=== PATIENT | female | born 1985 | race Two or more races ===

== ENCOUNTER 2018-08-06 10:12 | Observation (INO) | payer OTHER ==
--- NOTE | 2018-08-06 11:19 | EDPHY ---
H & P Stated Complaint: abd pain/20 weeks - Personal History LMP (Females 10-55): - Medical/Surgical History Hx Asthma: No Hx Chronic Respiratory Disease: No Hx Diabetes: No Hx Cardiac Disease: No Hx Renal Disease: No Hx Cirrhosis: No Hx Alcoholism: No Hx HIV/AIDS: No Hx Splenectomy or Spleen Trauma: No Other PMH: denies - Social History Smoking Status: Never smoked Time Seen by Provider: 08/06/18 10:46 HPI/ROS: CHIEF COMPLAINT: Abdominal pain, HISTORY OF PRESENT ILLNESS: 33-year-old female currently 20 weeks followed at [facility] maternity care complaining of 3 days of lower abdominal pain. She was seen by her OBGYN 2 days ago as well as yesterday and reassured that everything was okay however the pain has been keeping her up. Positive mild nausea.No vaginal bleeding or discharge. No back or flank pain. No fever or chills. No dysuria hematuria or increased frequency. Normal bowel movements. The patient has had confirmed ultrasound IUP PRIMARY CARE PROVIDER: [facility] maternity REVIEW OF SYSTEMS: 10 systems reviewed and negative with the exception of the elements mentioned in the history of present illness PAST MEDICAL & SURGICAL HISTORY: currently approximately 20 weeks SOCIAL HISTORY: Nonsmoker PHYSICAL EXAM (Prior to examination, patient consented to physical exam, hands were washed and my usual and customary physical exam procedures followed) 1) GENERAL: Well-developed, well-nourished, alert and oriented. Appears is uncomfortable. 2) HEAD: Normocephalic, atraumatic 3) HEENT: Pupils equal, round, reactive to light bilaterally. Sclera anicteric. 4) NECK: Full range of motion, no meningeal signs. 5) LUNGS: Clear auscultation bilaterally, no wheezes, no rhonchi, no retractions. 6) HEART: Regular rate and rhythm, no murmur, no heave, no gallop. 7) ABDOMEN: Tender to palpation bilateral lower quadrants, right greater than left No suprapubic discomfort. No right upper quadrant pain., 8) MUSCULOSKELETAL: Moving all extremities, no focal areas of tenderness, no obvious trauma. No peripheral edema or discoloration. 9) BACK: No CVA tenderness, no midline vertebral tenderness, no fluctuance, no step-off, no obvious trauma, no visual or palpable abnormality. 10) SKIN: No rash, no petechiae. 11) Psychiatric: Patient is oriented X 3, there is no agitation. DIFFERENTIAL DIAGNOSIS: My differential diagnosis includes, but is not limited to, acute appendicitis, acute cholecystitis, bowel obstruction, acute pancreatitis, ovarian torsion,, gastritis and urinary tract infection. The patient understands that this diagnosis is provisional and can never be 100% accurate. This is a partial list of diagnoses considered. These considerations are based on history, physical exam, past history and reassessment. (Mel Salcido) Constitutional: Initial Vital Signs Temperature (C) 36.5 C 08/06/18 10:17 Heart Rate 100 08/06/18 10:17 Respiratory Rate 18 08/06/18 10:17 Blood Pressure 97/65 L 08/06/18 10:17 O2 Sat (%) 99 08/06/18 10:17 O2 Delivery Mode Nasal Cannula O2 (L/minute) 2 Allergies/Adverse Reactions: No Known Allergies Allergy (Verified 08/06/18 16:42) Home Medications: Medication Instructions Recorded celeCOXIB [Celebrex (*)] 200 mg PO BID #4 cap 08/07/18 Medical Decision Making - Diagnostics Imaging Results: Images reviewed myself (Mel Salcido) ED Course/Re-evaluation: The patient was evaluated and managed by the physician's child life assistant. My cosignature indicates that I reviewed the chart and I agree with the findings and plan of care as documented. I am the secondary supervising physician. ( Tomasa Bullock) 11:00 a.m.: I have evaluated this patient, she appears uncomfortable. Will obtain diagnostic studies including obstetrical ultrasonography. 1:00 p.m.: Patient re-evaluated, she complains of continued pain to her abdomen. Discussed her obstetrical ultrasound. Of concern in this patient is possible appendicitis. Appendix not visualized on ultrasound Case discussed with secondary supervising physician Dr. Tomasa Bullock in the E R. Discussed possibility of magnetic resonance imaging Will consult with General surgery and with OBGYN prior to ordering MRI 1:07 p.m.: Consultation with Dr. Mike BLANCO who will come to the ER to evaluate patient will plan on General surgery consultation as well. 112 p.m.: Consultation with Dr Finley will come to ER to evaluate patient 138 pm: Drs Tushar & Mariela have consulted, recommend MRI abdomen. 4:15 p.m.: Patient's MRI is negative for acute appendicitis. Patient re- evaluated at this time, discussed her imaging results. She continues to complain of pain. 4:22 p.m.: Consultation with Dr. Mike Sierra who agrees to admit the patient for pain control, further evaluation to Labor and delivery. Patient has been unable to provide urine sample up to this point. Will be given further fluids. Early in the patient's emergency department course she was complaining of high level of abdominal pain. The patient, her and I had a lengthy discussion to discuss indications risks benefits of opiates. Given the degree of her pain I think that a single dose of opiate benefits outweigh the risks. Nonetheless she has been informed of potential risks and wishes to move forward with analgesia. I believe her to have decision-making capacity. (Mel Salcido) - Data Points Laboratory Results: Laboratory Results 08/06/18 11:05 08/06/18 11:05 Medications Given: Discontinued Medications Acetaminophen (Tylenol) 1,000 mg PO Q8HRS RICH Stop: 02/02/19 21:59 Last Admin: 08/07/18 07:58 Dose: Not Given Celecoxib (Celebrex) 200 mg PO BID RICH Stop: 02/03/19 08:59 Last Admin: 08/07/18 13:39 Dose: 200 mg Celecoxib (Celebrex) 400 mg PO ONCE ONE Stop: 08/06/18 18:16 Last Admin: 08/06/18 19:06 Dose: 400 mg Sodium Chloride (Ns) 1,000 mls @ 0 mls/hr IV ONCE ONE PRN Reason: Wide Open Stop: 08/06/18 16:26 Last Admin: 08/06/18 17:15 Dose: 1,000 mls Morphine Sulfate (Morphine) 4 mg IVP EDNOW ONE Stop: 08/06/18 13:10 Last Admin: 08/06/18 13:12 Dose: 4 mg Departure - Departure Disposition: [facility] Inpatient Acute Clinical Impression: Abdominal pain Qualifiers: Abdominal location: right lower quadrant Qualified Code(s): R10.31 - Right lower quadrant pain Condition: Fair
[2018-08-06 11:21] LABS: PLATELET COUNT 250 10^3/uL (150-400)
--- NOTE | 2018-08-06 14:44 | GCON ---
DATE OF CONSULTATION: 08/06/2018 CHIEF COMPLAINT: Abdominal pain. HISTORY OF PRESENT ILLNESS: This is a 33-year-old female, approximately 20 weeks , who presents to the emergency department with a 3-day history of abdominal pain. Briefly, the patient states that the pain started on Thursday, was originally in her right lower quadrant. She subsequently followed up with her OB and had an ultrasound, which was reassuring. She was subsequently sent home. She states that throughout , she had progressive abdominal pain now to the left portion of her abdomen. Over last night, the pain got worse, which prompted her presentation today. She describes the pain as intermittent, colicky type. It usually starts in the right lower quadrant but radiates now to the left lower and left upper quadrant at times. Nothing really makes it worse. Resting and fluids make it better. She denies having any nausea or vomiting associated with this, and she denies having any subjective chills or fever. She has never had pain like this before. This is her second , the first of which was uneventful. This is the first time during this that she has had issues. PAST MEDICAL HISTORY: None. PAST SURGICAL HISTORY: None. CURRENT MEDICATIONS: vitamins. ALLERGIES: None. FAMILY HISTORY: Noncontributory. SOCIAL HISTORY: Denies illicit drug use. 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 REVIEW OF SYSTEMS: A full 10-point review was performed. PHYSICAL EXAMINATION: VITAL SIGNS: Temperature 36.5, blood pressure 115/78, heart rate is 76, and she is 96% on room air. CONSTITUTIONAL: She is in no apparent distress. She does appear uncomfortable, however. HEENT: Eyes, her pupils are equal, round, and reactive to light and accommodation. She has anicteric sclerae. Extraocular movements are intact. Ears, nose, mouth, throat : She has dry mucous membranes. Her hearing is normal. Her ears appear normal. She has normal dentition. CARDIOVASCULAR: She has a regular rate and rhythm, without any murmurs, gallops, or rubs. RESPIRATORY: She has no respiratory distress, rales or rhonchi. She is otherwise clear to auscultation bilaterally. GI: Her abdomen is distended, consistent with a 20-week gestation. She has normoactive bowel sounds. She is minimally tender in all quadrants, without rebound tenderness or guarding. SKIN: Warm. Normal color. No rashes. MUSCULOSKELETAL: Full strength. Normal tenderness. Normal joint range of motion. NEUROLOGIC: She is alert and oriented x3. Her cranial nerves 2-12 are intact. No weakness. No numbness or asterixis. PSYCH: She is interacting appropriately. She is not anxious or encephalopathic. LYMPH/ HEME/IMMUNOLOGIC: No cervical, groin, or supraclavicular lymphadenopathy is appreciated. LABS: She does have a leukocytosis to 15,000 with a left shift at 84% neutrophils. Her H and H are stable at 12 and 37. Her platelets are normal at 250. Her chemistry is largely unremarkable. IMAGING: Includes an abdominal ultrasound and an abdominal MRI, the images of which were personally reviewed, which shows a nonvisualized appendix. The MR shows what appears to be a normal appendix and no other significant findings. ASSESSMENT AND PLAN: A 33-year-old female, approximately 20 weeks with abdominal pain, question appendicitis. The patient's story does not really reflect appendicitis. She has not had any fevers. In addition, no nausea or vomiting, but she does have persistent, somewhat progressive abdominal pain, worse in the right lower quadrant. I am concerned that she may have appendicitis and feel that further imaging at this point in time is warranted. I discussed this with Dr. Sierra of [facility], who agrees that further imaging is likely warranted. We will plan for MR of her abdomen. I told the patient that we will proceed with further imaging, and that if she does have findings consistent or worrisome for appendicitis, that my recommendation would be for appendectomy. I briefly discussed this with the patient and will follow up with her once the imaging is completed. Imaging complete: appendix visualized and not inflamed. Dont feel that operative intervention warranted in this patient, will defer management to OB /[id number]/MODL MTDD
[2018-08-06] MEDS ORDERED: NS 1,000 ML IV ONE (16:25)
--- NOTE | 2018-08-06 17:02 | PDGENHP ---
History and Physical - Chief Complaint Abdominal pain, 20 wks - History of Present Illness 33 yo at approximately 20 wks EGA today, presented to ER this afternoon with worsening rather diffuse abdominal pain. She describes this pain as occasionally sharp, but hard to pinpoint. Started approximately 3 days ago, initially RLQ. Since then she can feel the pain in other quadrants, more diffuse. She's had no bleeding during this time, has felt no contractions, and has been and still is feeling normal movement. When this started days ago she was seen by her primary OB providers at [facility] who reportedly looked with US and told her things looked reassuring. Pain continued to worsen yesterday and today and ultimately presented to the ED. Here she has a mildly elevated WBC of 15k, no fever. She was seen by Dr. Finley of General Surgery to eval for appendicitis and MRI was ordered after US couldn't visualize the appendix. MRI negative for appendicitis. She ultimately is in too much pain to be discharged home so we will be admitting her to L&D for observation and pain control. Her US today shows active, viable fetus - Biometry is indicative of an age of 18 weeks 3 days and an HU of 01/04/2019. She does have known large uterine fibroids and this today is demonstrated on US and MRI as an exophytic 6cm subserosal fibroid emanating from the fundus. We don't currently have her records from [facility], but she reports this has been an overall uncomplicated . History Information - Allergies/Home Medication List Allergies/Adverse Reactions: No Known Allergies Allergy (Verified 08/06/18 16:42) Home Medications: NK [No Known Home Meds] 08/06/18 [Last Taken Unknown] I have personally reviewed and updated: family history, medical history, social history, surgical history Past Medical History: H/o prior normal - Past Medical History no pertinent PMH - Surgical History Reports: no pertinent surgical hx - Family History Positive for: non-pertinent - Social History Smoking Status: Never smoked Alcohol Use: None Review of Systems Review of Systems: ROS: 10pt was reviewed & negative except for what was stated in HPI & below Physical Exam Physical Exam: Temp Pulse Resp BP Pulse Ox 36.5 C 91 18 105/71 100 08/06/18 10:17 08/06/18 15:29 08/06/18 15:29 08/06/18 15:29 08/06/18 15:29 Constitutional: appears nourished, uncomfortable (Appears uncomfortable, lying in position) Eyes: PERRL, scleral injection Ears, Nose, Mouth, Throat: moist mucous membranes Cardiovascular: regular rate and rhythym, no murmur, rub, or gallop Respiratory: no respiratory distress, clear to auscultation Gastrointestinal: tenderness (Belly is tender to light and deep palpation, specifically over fundus), guarding, other (Fundus at umbilicus), No ascites, No armstrong's sign, No rebound, No distension Genitourinary: no bladder fullness, no bladder tenderness Skin: warm, normal color, no rashes or abrasions Musculoskeletal: full muscle strength, no muscle tenderness Neurologic: AAOx3, sensation intact bilaterally, No weakness Psychiatric: interacting appropriately, not anxious Lab Data & Imaging Review 08/06/18 11:05 08/06/18 11:05 WBC 15.77 10^3/uL (3.80-9.50) H 08/06/18 11:05 RBC 4.12 10^6/uL (4.18-5.33) L 08/06/18 11:05 Hgb 12.6 g/dL (12.6-16.3) 08/06/18 11:05 Hct 37.1 % (38.0-47.0) L 08/06/18 11:05 MCV 90.0 fL (81.5-99.8) 08/06/18 11:05 MCH 30.6 pg (27.9-34.1) 08/06/18 11:05 MCHC 34.0 g/dL (32.4-36.7) 08/06/18 11:05 RDW 14.8 % (11.5-15.2) 08/06/18 11:05 Plt Count 250 10^3/uL (150-400) 08/06/18 11:05 MPV 10.1 fL (8.7-11.7) 08/06/18 11:05 Neut % (Auto) 84.3 % (39.3-74.2) H 08/06/18 11:05 Lymph % (Auto) 8.4 % (15.0-45.0) L 08/06/18 11:05 Garrett % (Auto) 6.3 % (4.5-13.0) 08/06/18 11:05 Eos % (Auto) 0.3 % (0.6-7.6) L 08/06/18 11:05 Baso % (Auto) 0.3 % (0.3-1.7) 08/06/18 11:05 Nucleat RBC Rel Count 0.0 % (0.0-0.2) 08/06/18 11:05 Absolute Neuts (auto) 13.30 10^3/uL (1.70-6.50) H 08/06/18 11:05 Absolute Lymphs (auto) 1.33 10^3/uL (1.00-3.00) 08/06/18 11:05 Absolute Monos (auto) 0.99 10^3/uL (0.30-0.80) H 08/06/18 11:05 Absolute Eos (auto) 0.04 10^3/uL (0.03-0.40) 08/06/18 11:05 Absolute Basos (auto) 0.05 10^3/uL (0.02-0.10) 08/06/18 11:05 Absolute Nucleated RBC 0.00 10^3/uL (0-0.01) 08/06/18 11:05 Immature Gran % 0.4 % (0.0-1.1) 08/06/18 11:05 Immature Gran # 0.06 10^3/uL (0.00-0.10) 08/06/18 11:05 Sodium 137 mEq/L (135-145) 08/06/18 11:05 Potassium 3.6 mEq/L (3.3-5.0) 08/06/18 11:05 Chloride 104 mEq/L (97-110) 08/06/18 11:05 Carbon Dioxide 23 mEq/l (22-31) 08/06/18 11:05 Anion Gap 10 mEq/L (8-16) 08/06/18 11:05 BUN 4 mg/dL (7-23) L 08/06/18 11:05 Creatinine 0.4 mg/dL (0.6-1.0) L 08/06/18 11:05 Estimated GFR > 60 08/06/18 11:05 Glucose 88 mg/dL (70-100) 08/06/18 11:05 Calcium 9.3 mg/dL (8.5-10.4) 08/06/18 11:05 Total Bilirubin 0.8 mg/dL (0.1-1.4) 08/06/18 11:05 Conjugated Bilirubin 0.0 mg/dL (0.0-0.5) 08/06/18 11:05 Unconjugated Bilirubin 0.8 mg/dL (0.0-1.1) 08/06/18 11:05 AST 25 IU/L (14-46) 08/06/18 11:05 ALT 36 IU/L (9-52) 08/06/18 11:05 Alkaline Phosphatase 82 IU/L (38-126) 08/06/18 11:05 Total Protein 7.2 g/dL (6.3-8.2) 08/06/18 11:05 Albumin 3.8 g/dL (3.5-5.0) 08/06/18 11:05 Lipase 40 IU/L (23-300) 08/06/18 11:05 Beta HCG, Quant 99207.00 mIU/mL (0.00-4.83) H 08/06/18 11:05 Imaging Review: Date of Service: 08/06/18 Acct Num: [id number] Ultrasound Obstetrics 2 TRI >14 WKS ___ Second Trimester Obstetrical Sonography Clinical History: 33-year-old female with advanced maternal age, presenting to the ED with a three-day history of abdominal pain. Technique: A curvilinear 5 MHz transducer was used to sonographically evaluate the fetus and the placenta. M-mode Doppler was used. LMP: Unknown. Comparison Study: Prior obstetrical sonography is not available. This is correlated with right lower quadrant abdominal sonography performed today. Findings: There is a single viable intrauterine gestation, currently cephalic in presentation. The placenta is posterior. The maternal cervix is lower limits of normal at 2.5 cm, measured transabdominally, and the the placental positioning relative to the cervix is not optimally evaluated. There is a fundal subserosal fibroid measuring 6.1 x 5.5 x 6.1 cm. The amniotic fluid volume is appropriate, with a maximal vertical pocket of 4.0 cm. The heart rate is 149 bpm. The maternal ovaries were not seen during the obstetrical portion of the exam ( although the maternal right ovary was seen during the evaluation of the right lower quadrant of the abdomen, reported earlier). The anatomy is cursorily evaluated, and there is a 4 chambered heart, stomach, right and left kidneys, and urinary bladder observed. The cisterna magna is 2.6 mm, and the lateral ventricular diameter is 5.3 mm. biometry is as follows: The biparietal diameter is 41 mm, corresponding to an age of 18 weeks 4 days +/ - 1 week 6 days. The head circumference is 149 mm, corresponding to an age of 18 weeks 1 day +/- 1 week 4 days. The abdominal circumference is 120 mm, corresponding to an age of 17 weeks 6 days +/- 1 week 5 days. The femur length is 28 mm, corresponding to an age of 18 weeks 5 days +/- 1 week 6 days. The humeral length is 26 mm, corresponding to an age of 18 weeks 1 day, and the transcerebellar diameter is 18 mm, corresponding to an age of 18 weeks 0 days +/- 1 week 0 days, for a composite gestational age of 18 weeks 3 days. The estimated weight is 226 g +/- 33 g, which is 8 ounces +/- 1 ounce. The head circumference to abdominal circumference ratio is 1.24. The femur length to biparietal diameter ratio is 68%, and the femur length to abdominal circumference ratio is 23%. Impression: There is a single viable intrauterine gestation with a limited anatomic survey and suboptimal assessment of placental positioning and a maternal cervix at the lower limits of normal. Biometry is indicative of an age of 18 weeks 3 days and an HU of 01/04/2019. Findings were discussed with Jhoana Salcido PA-C at 12:30 PM, on 08/06/2018. Because of the patient's advanced maternal age, cursory anatomic survey, and limited assessment of the maternal cervix and placental positioning, it may be worthwhile to consider a follow-up consultation with [facility] at the [facility]. Dictated By: Kb Hu MD *This report was compiled using a voice recognition dictation system and may contain typographical errors* 1233 T: PSCRIBE 08/06/18 1233 Electronically Signed by: Kb Hu MD 08/06/18 1248 CC: Mel Salcido PAC; NONE *PRIMARY CARE PHYS ONLY*; ASH FOSTER~ Assessment & Plan Assessment: 33 yo at approximately 20 wks EGA presents with acute diffuse/ multifocal abdominal pain. Leading differential includes labor, appendicitis, degenerating uterine fibroids. PTL unlikely - Reassuring OB US, no signs of distress or abruption sonographically and outwardly patient is not describing contractions and is having no bleeding, good movement. Appreciate Gen Surg eval re appendicitis - MRI not suggestive of that. I suspect degenerating fibroids is most likely etiology. - Will start 3 day course of Celebrex for inflammatory pain related to fibroid - 200mg BID x 3 days, will give 400mg now x 1 for day 1. - Unable to give urine sample downstairs - need to get this w/ culture PRN. - [place] PRN is fine if needed until pain better controlled. - General diet, daily doptones, up and ambulate, no IVF, no sinha. - Will get records when we can. - Likely home next 24-48 hrs when pain controlled. EMMA
[2018-08-06] MEDS ORDERED: HYDROCODONE/APAP 5/325 TAB PO PRN (17:31)
[2018-08-06] MEDS ORDERED: ZOLPIDEM TARTRATE 5 MG TAB PO PRN (17:32)
[2018-08-06 17:46] VITALS: BP 105/68
[2018-08-07] MEDS: ACETAMINOPHEN 500 MG TAB PO SCH ×2 (00:20→07:58)
[2018-08-07 06:06] LABS: PLATELET COUNT 213 10^3/uL (150-400)
--- NOTE | 2018-08-07 13:27 | SOAPPROG ---
[facility] Progress Note Assessment/Plan: Assessment: 33 yo @ 20 weeks pain secondary to degenerating fibroid - improved with celebrex follow up with clinica next week Plan: 08/07/18 13:25 Objective: Vital Signs Temp Pulse Resp BP Pulse Ox 36.8 C 98 18 105/68 100 08/06/18 17:44 08/06/18 17:44 08/06/18 17:44 08/06/18 17:44 08/06/18 17:44 Laboratory Results 08/07/18 06:00 08/06/18 08/07/18 08/08/18 05:59 05:59 05:59 Intake Total 1000 Output Total 0 Balance 1000 Physical Exam - Physical Exam General Appearance: WD/WN, alert, no apparent distress Respiratory: chest non-tender, lungs clear, normal breath sounds Cardiac/Chest: normal peripheral pulses, regular rate, rhythm Abdomen: normal bowel sounds, soft, other (gravid. fibroid is non tender) Skin: normal color, warm/dry Extremities: normal range of motion, non-tender, normal inspection, normal capillary refill Neuro/Psych: no motor/sensory deficits, alert, normal mood/affect, oriented x 3 ICD10 Worksheet Patient Problems: Problems Problem Status Onset Abdominal pain Acute
== END 2018-08-07 13:45 | disposition home or self-care (01) ==
LOC: FLD 17:56
PROVIDERS: ADMIT Obstetrics & Gynecology; ATTEND Obstetrics & Gynecology
DX: O34.12 Maternal care for benign tumor of corpus uteri, second trimester (principal); Z3A.20 20 weeks gestation of pregnancy
CPT/HCPCS: 74181; 76705; 76805; 96374; 99285; G0378; J2270

== ENCOUNTER → 2018-12-23 | Outpatient (CLI) | payer OTHER, MEDICAID | LOC: FIMAGING 16:34 | PROVIDERS: ATTEND Physician Assistant | DX: O26.843 Uterine size-date discrepancy, third trimester (principal); Z3A.37 37 weeks gestation of pregnancy ==